=== PATIENT | female | born 1945 | race Caucasian/White ===

== ENCOUNTER 2018-09-06 20:51 | Emergency (ER) | payer MEDICARE ==
[2018-09-06] MEDS ORDERED: Bacitracin Oint 1 GM U/D Packet TOP ONE (21:37)
--- NOTE | 2018-09-06 22:10 | EDM.PDOC ---
ED HPI GENERAL MEDICAL PROBLEM - General Chief Complaint: General Stated Complaint: SARITHA LUGO Time Seen by Provider: 09/06/18 21:31 Source of Information: Reports: Patient History Limitations: Reports: No Limitations - History of Present Illness INITIAL COMMENTS - FREE TEXT/NARRATIVE: saritha lugo, left hand, 5th digit; happened tonight; UTD with tetanus, 2014 non diabetic Cleaned with peroxide [employer] Onset: Today Location: Reports: Upper Extremity, Left Quality: Reports: Sharp, Stabbing Severity: Mild Improves with: Reports: Immobilization Worsens with: Reports: Movement Context: Reports: Other (fishing) Associated Symptoms: Reports: No Other Symptoms Left Finger-Little Pain Score (Numeric/FACES): 4 - Related Data Allergies Allergy/AdvReac Type Severity Reaction Status Date / Time No Known Allergies Allergy Verified 09/06/18 21:34 Home Meds: Home Meds *Atenolol 1 tab PO DAILY 09/06/18 [History] *Paxil 1 tab PO DAILY 09/06/18 [History] *Simvastatin 1 tab PO DAILY 09/06/18 [History] Cholecalciferol (Vitamin D3) [Vitamin D3] 2,000 unit PO DAILY 09/06/18 [History] Past Medical History HEENT History: Reports: Cataract, Impaired Vision Cardiovascular History: Reports: Heart Murmur, Hypertension Gastrointestinal History: Reports: GERD 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: Musculoskeletal History: Reports: Arthritis - Infectious Disease History Infectious Disease History: Reports: Chicken Pox, Influenza, Measles, Mumps, Rheumatic Fever, Shingles - Past Surgical History HEENT Surgical History: Reports: Cataract Surgery Female Surgical History: Reports: Section Musculoskeletal Surgical History: Reports: Knee Replacement Social & Family History - Tobacco Use Smoking Status *Q: Never Smoker - Caffeine Use Caffeine Use: Reports: None, Coffee, Soda - Recreational Drug Use Recreational Drug Use: No ED ROS GENERAL - Review of Systems Review Of Systems: ROS reveals no pertinent complaints other than HPI. ED EXAM, GENERAL - Physical Exam Exam: See Below Exam Limited By: No Limitations General Appearance: Alert, WD/WN, No Apparent Distress Head: Atraumatic, Normocephalic Neck: Normal Inspection, Supple, Non-Tender, Full Range of Motion Respiratory/Chest: No Respiratory Distress, Lungs Clear, Normal Breath Sounds Cardiovascular: Regular Rate, Rhythm Peripheral Pulses: 4+: Radial (L) Extremities: Other (fish hook in the fifth finger, distal ) Neurological: Alert, Oriented, CN II-XII Intact, Normal Cognition, Normal Gait ED GENERAL MEDICAL PROCEDURES - Laceration/Wound Repair fish hook Lac/wound length in cm: 0.5 Appearance: Superficial Distal NVT: Neuro & Vascular Intact, No Tendon Injury Anesthetic Type: Local Local Anesthesia - Lidocaine (Xylocaine): 1% Plain Local Anesthetic Volume: 3cc Exploration/Debridement/Repair: Wound Explored, In a Bloodless Field (fish hook was easily removed by advancing hook through skin) Complications: No Progress/Comments: bacitracin applied with bandage Course - Vital Signs Last Recorded V/S: Last Vital Signs Temp 96.6 F 09/06/18 21:38 Pulse 61 09/06/18 21:38 Resp 14 09/06/18 21:38 BP 171/76 H 09/06/18 21:38 Pulse Ox 96 09/06/18 21:38 - Orders/Labs/Meds Meds: Medications Discontinued Medications Generic Name Dose Route Start Last Admin Trade Name Yosef PRN Reason Stop Dose Admin Bacitracin 1 dose 09/06/18 21:37 09/06/18 21:52 Bacitracin Oint 1 Gm TOP 09/06/18 21:38 1 dose ONETIME ONE Administration Lidocaine HCl 5 ml 09/06/18 21:35 09/06/18 21:52 Xylocaine-Mpf 1% INJECT 09/06/18 21:36 5 ml ONETIME ONE Administration Departure - Departure Time of Disposition: 22:09 Disposition: Home, Self-Care 01 Condition: Good Clinical Impression: Fish hook injury of finger Qualifiers: Encounter type: initial encounter Laterality: left Qualified Code(s): S69.92XA - Unspecified injury of left wrist, hand and finger(s), initial encounter - Discharge Information *PRESCRIPTION DRUG MONITORING PROGRAM REVIEWED*: Not Applicable *COPY OF PRESCRIPTION DRUG MONITORING REPORT IN PATIENT NICKOLAS: Not Applicable Referrals: PCP,None [Primary Care Provider] - Forms: ED Department Discharge Additional Instructions: Watch for signs of infection. Call with questions. Keep area clean and dry for 24 hours. - Problem List & Annotations (1) Fish hook injury of finger SNOMED Code(s): 43599618 Code(s): S69.90XA - UNSP INJURY OF UNSP WRIST, HAND AND FINGER(S), INIT ENCNTR Status: Acute Priority: Medium Current Visit: Yes Qualifiers: Encounter type: initial encounter Laterality: left Qualified Code(s): S69.92XA - Unspecified injury of left wrist, hand and finger(s), initial encounter
== END 2018-09-06 22:32 | disposition home or self-care (01) ==
LOC: JP.ED 20:51
DX: S60.457A Superficial foreign body of left little finger, initial encounter (principal); I10 Essential (primary) hypertension; K21.9 Gastro-esophageal reflux disease without esophagitis; Z79.899 Other long term (current) drug therapy; W45.8XXA Other foreign body or object entering through skin, initial encounter
CPT/HCPCS: 99283; J2001